=== PATIENT | male | born 1975 | race Caucasian/White ===

== ENCOUNTER 2016-10-16 13:40 | Emergency (ER) | payer OTHER ==
[~2016-10-16] VITALS: Ht 177.8 cm; Wt 84.0 kg
[2016-10-16 13:46] VITALS: BP 141/91; PULSE 87; RESP 16; TEMP 98.4; O2SAT 99
[2016-10-16] MEDS ORDERED: methylPREDNISolone SOD SUCC 125 MG/2 ML VIAL IVP ONE (14:15)
[2016-10-16] MEDS ORDERED: SODIUM CHLORIDE 0.9% FLUSH 10 ML FLUSH IVF PRN (14:15)
[2016-10-16] MEDS ORDERED: KETOROLAC TROMETHAMINE 30 MG/ML (IVP) VIAL IV PUSH ONE (14:15)
--- NOTE | 2016-10-16 14:24 | PD ---
HPI Chief Complaint: Pain: Acute or Chronic Time Seen by Provider: 14:15 Travel History International Travel<30 days: No Contact w/Intl Traveler<30days: No Traveled to known affect area: No History of Present Illness HPI 41-year-old male presents the emergency department with left-sided sciatic symptoms for the past 2 days. Patient has history of microdiscectomy at the L4-L5 level 5 years ago. Patient states he's been going to chiropractor over the past week for some low back pain. He had an adjustment yesterday has pain got worse time. Patient has radicular pain into the left buttock and thigh and states some numbness in the inner left groin. Pain is rated as a 6/ 10 at rest. It is worse with sitting. He denies specific weakness, or urinary symptoms. He denies bowel issues. He has no known drug allergies. PFSH Past Medical History Medical History: Denies Significant Hx Hx Anticoagulant Therapy: No Diabetes: No Tetanus Vaccination: < 5 Years Influenza Vaccination: No Social History Alcohol Use: Yes (Social) Tobacco Use: No Substance Use: No Allergies-Medications (Allergen,Severity, Reaction): Coded Allergies: No Known Allergies (Unverified , 10/16/16) Reported Meds & Prescriptions Reported Meds & Active Scripts Active No Active Prescriptions or Reported Medications Review of Systems Except as stated in HPI: all other systems reviewed are Neg General / Constitutional: No: Fever Eyes: No: Visual changes HENT: No: Headaches Cardiovascular: No: Chest Pain or Discomfort Respiratory: No: Shortness of Breath Gastrointestinal: No: Abdominal Pain Genitourinary: No: Dysuria Musculoskeletal: No: Pain Skin: No Rash Neurologic: No: Weakness Psychiatric: No: Depression Endocrine: No: Polydipsia Hematologic/Lymphatic: No: Easy Bruising Physical Exam Narrative GENERAL: Patient appears in mild distress. SKIN: Warm and dry. Normal color. Normal turgor. No rash. HEAD: Atraumatic. Normocephalic. EYES: Pupils equal and round. No scleral icterus. No injection or drainage. ENT: No nasal bleeding or discharge. Mucous membranes pink and moist. Pharynx is clear. Airway is patent. NECK: Trachea midline. Supple and nontender. CARDIOVASCULAR: Regular rate and rhythm. RESPIRATORY: No accessory muscle use. Clear to auscultation. Breath sounds equal bilaterally. GASTROINTESTINAL: Abdomen soft, non-tender, nondistended. Hepatic and splenic margins not palpable. MUSCULOSKELETAL: Extremities without clubbing, cyanosis, or edema. No obvious deformities. Patient is tenderness along the left lower lumbar spine into the left sciatic notch. Patient has increased pain with straight leg raise on the left at 35. Patient has negative contralateral pain on the left. Deep tendon reflexes are 2+ and equal bilaterally. Babinski is downward bilaterally. NEUROLOGICAL: Awake and alert. No obvious cranial nerve deficits. Motor grossly within normal limits. Five out of 5 muscle strength in the arms and legs. Normal speech. PSYCHIATRIC: Appropriate mood and affect; insight and judgment normal. Data Data Last Documented VS Vital Signs Date Time Temp Pulse Resp B/P Pulse Ox O2 Delivery O2 Flow Rate FiO2 10/16/16 13:46 98.4 87 16 141/91 99 Orders Mri L Spine W&W/O Contrast (10/16/16 ) Basic Metabolic Panel (Bmp) (10/16/16 14:15) Iv Access Insert/Monitor (10/16/16 14:15) Methylprednisolone So Succ Inj (Solumedr (10/16/16 14:15) Sodium Chloride 0.9% Flush (Ns Flush) (10/16/16 14:15) Ketorolac Inj (Toradol Inj) (10/16/16 14:15) Gadodiamide Pf Inj (Omniscan Pf Inj) (10/16/16 15:33) Labs Laboratory Tests Test 10/16/16 14:25 Sodium Level 140 MEQ/L Potassium Level 4.1 MEQ/L Chloride Level 104 MEQ/L Carbon Dioxide Level 30.1 MEQ/L Anion Gap 6 MEQ/L Blood Urea Nitrogen 17 MG/DL Creatinine 1.10 MG/DL Estimat Glomerular Filtration 73 ML/MIN Rate Random Glucose 85 MG/DL Calcium Level 8.8 MG/DL [facility] Medical Decision Making Medical Screen Exam Complete: Yes Emergency Medical Condition: Yes Differential Diagnosis Lumbago. Sciatica. Possible disc herniation. Narrative Course Patient is medically stable at time of exam. IV access is obtained patient is given 125 mg Solu-Medrol IV as well as 30 mg Toradol IV. Lumbar MRI is ordered with and without contrast. Lumbar MRI is reported to have no acute disc bulge, but radiologist states scar tissue from previous procedures appear to be impinging on the left-sided nerve root at L5-S1 junction. Results are discussed with the patient, and copy of MRI is ordered. Patient be discharged home on prednisone 20 mg twice a day 7 days. Patient is also given Norflex 100 mg twice a day when necessary muscle spasm. # 20. Patient can follow-up with his neurosurgeon in [place] or he can follow-up with our neurosurgeon on-call who is Dr. Weiss. Patient can take extra strength Tylenol as well for pain as needed. I recommend frequent walking, ice, stretching of the lower spine. Patient should return with worsening symptoms as discussed. Diagnosis Primary Impression: Left-sided low back pain with left-sided sciatica Qualified Code: M54.42 - Acute left-sided low back pain with left-sided sciatica Referrals: Ari Weiss MD as needed Patient Instructions: General Instructions, Lower Back Exercises (ED), Prednisone (By mouth), Sciatica (ED) Additional Instructions: Lumbar MRI is reported to have no acute disc bulge, but radiologist states scar tissue from previous procedures appear to be impinging on the left-sided nerve root at L5-S1 junction. Results are discussed with the patient, and copy of MRI is ordered. Patient be discharged home on prednisone 20 mg twice a day 7 days. Patient is also given Norflex 100 mg twice a day when necessary muscle spasm. # 20. Patient can follow-up with his neurosurgeon in [place] or he can follow-up with our neurosurgeon on-call who is Dr. Weiss. Patient can take extra strength Tylenol as well for pain as needed. I recommend frequent walking, ice, stretching of the lower spine. Patient should return with worsening symptoms as discussed. Med/Other Pt SpecificInfo: Prescription(s) given Scripts No Active Prescriptions or Reported Meds Disposition: 01 DISCHARGE HOME Condition: Stable Ventura Perez October 16, 2016 14:24
[2016-10-16 14:56] LABS: POTASSIUM 4.1 MEQ/L (3.5-5.1)
[2016-10-16 14:59] LABS: BICARBONATE 30.1 MEQ/L (21.0-32.0)
[2016-10-16] MEDS ORDERED: GADODIAMIDE PF 287 MG/ML 20 ML VIAL (for RAD MRI) IV ONE (15:33)
[2016-10-16] MEDS ORDERED: ORPH100T99 PO (16:25)
[2016-10-16] MEDS ORDERED: PRED20 PO (16:25)
--- NOTE | 2016-10-16 16:42 | RADHPO ---
EXAM DATE/TIME: 10/16/2016 15:22 [facility] COMPARISON: No previous studies available for comparison. INDICATIONS : Left hip pain. CONTRAST: 17 cc Omniscan (gadodiamide) IV MEDICAL HISTORY : None. SURGICAL HISTORY : Discectomy, lumbar. ENCOUNTER: Initial ACUITY: 2 day PAIN SCORE: 6/10 LOCATION: Back/hip TECHNIQUE: Multiplanar multisequence MRI of the lumbar spine was performed with and without contr ast. FINDINGS: The marrow signal in the lumbar vertebrae is inhomogeneous in a nonspecific fashion in a 41 year old. Most of the abnormal marrow is adjacent to the endplates. This type of signal abnorma lity can be seen in people who have an ankylosing spondylitis variant. The conus is unremarkable. L1-2 appears normal. L2-L3: There is generalized disc bulging at L2-3 causing some flattening of the anterior thecal spac e without significant spinal stenosis. Neural foramina are adequate. L3-L4: There is some mild bulging L3-4 causing some flattening of the anterior thecal space. Neural foramina are adequate. L4-L5: There is mild disc bulging L4-5 causing some flattening of the anterior thecal space without significant spinal stenosis. L5-S1: There is some bulging at L5-S1. There is evidence for a previous surgery on the left. On th e post contrast scan there is enhancement in what appears to be scar entrapping the S1 root. I do no t see evidence for recurrent disc herniation. CONCLUSION: 1. Abnormal marrow signal as described above in the endplate. 2. Previous laminectomy at L5-S1 on the left with scar entrapment of the left S1 root. Stanley Black MD FACR on October 16, 2016 at 16:11 Board Certified Radiologist. This report was verified electronically.
== END 2016-10-16 16:40 | disposition home or self-care (01) ==
LOC: PHEFT 13:40
DX: M54.42 Lumbago with sciatica, left side (principal); M62.830 Muscle spasm of back
CPT/HCPCS: 72158; 80048; 96374; 96375; 99284; A9579; J1885; J2930